=== PATIENT | female | born 1985 | race Caucasian/White ===

== ENCOUNTER 2016-10-19 18:18 | Emergency (ER) | payer OTHER ==
[~2016-10-19] VITALS: Ht 170.2 cm; Wt 59.0 kg
[2016-10-19 18:29] VITALS: BP 129/69
[2016-10-19] MEDS ORDERED: TRAM-48 PO (18:40)
[2016-10-19] MEDS ORDERED: AMOX875T PO (18:40)
--- NOTE | 2016-10-19 18:41 | PHYS DOC ---
Past Medical History Past Medical History: No Pertinent History Past Surgical History: Other Additional Past Surgical Histo: R FINGER SX Alcohol Use: Occasionally Drug Use: None Adult General Chief Complaint Chief Complaint: TOOTH ACHE OR PAIN HPI HPI Patient is a 30 year old female who presents complaining of moderate left upper gum wisdom tooth pain that began a week ago. Patient denies any fever or trismus. She states she has an appointment with her dentist in 3 weeks. Review of Systems Review of Systems Constitutional: Denies fever or chills [] HENT: Left upper gum wisdom tooth pain Musculoskeletal: Denies back pain or joint pain [] Integument: Denies rash or skin lesions [] Neurologic: Denies headache, focal weakness or sensory changes [] Endocrine: Denies polyuria or polydipsia [] Physical Exam Physical Exam Constitutional: Well developed, well nourished, no acute distress, non-toxic appearance. [] HENT: Normocephalic, atraumatic, bilateral external ears normal, oropharynx moist, no oral exudates, nose normal. [] Scattered dental caries throughout her teeth. Left upper gum wisdom tooth appears decayed. No gum redness or swelling. Skin: Warm, dry, no erythema, no rash. [] Back: No tenderness, no CVA tenderness. [] Extremities: No tenderness, no cyanosis, no clubbing, ROM intact, no edema. [] Neurologic: Alert and oriented X 3, normal motor function, normal sensory function, no focal deficits noted. [] Psychologic: Affect normal, judgement normal, mood normal. [] Current Patient Data Vital Signs Vital Signs Date Time Temp Pulse Resp B/P (MAP) Pulse Ox O2 Delivery O2 Flow Rate FiO2 10/19/16 18:29 98.1 74 16 100 Room Air 98.1 EKG EKG [] Radiology/Procedures Radiology/Procedures [] Course & Med Decision Making Course & Med Decision Making Pertinent Labs and Imaging studies reviewed. (See chart for details) Patient has infected dental caries. Discharged with Ultram and amoxicillin. Follow-up with her dentist, she has an appointment in 3 weeks. Dragon Disclaimer Dragon Disclaimer This electronic medical record was generated, in whole or in part, using a voice recognition dictation system. Departure Departure Impression: Primary Impression: Dentalgia Additional Impression: Infected dental caries Disposition: HOME, SELF-CARE Condition: STABLE Referrals: NO PCP (PCP) Follow-up with your dentist in 1-2 weeks Patient Instructions: Dental Caries Additional Instructions: You were seen for infected dental caries. Please complete your antibiotics. Follow-up with your dentist as soon as you can Scripts Tramadol Hcl (ULTRAM) 50 Mg Tablet 1 TAB PO Q6HRS, #30 TAB Prov: CATA ALEJANDRO APRN 10/19/16 Amoxicillin (AMOXICILLIN) 875 Mg Tablet 1 TAB PO BID, #20 TAB Prov: CATA ALEJANDRO APRN 10/19/16 Problem Qualifiers CATA ALEJANDRO APRN Oct 19, 2016 18:41
== END 2016-10-19 18:50 | disposition home or self-care (01) ==
LOC: ER 18:18
DX: K02.9 Dental caries, unspecified (principal); K04.7 Periapical abscess without sinus
CPT/HCPCS: 99283

== ENCOUNTER 2016-11-26 09:57 | Emergency (ER) | payer OTHER ==
[~2016-11-26] VITALS: Ht 170.2 cm; Wt 59.0 kg
[~2016-11-26 09:57] MED LIST: AMOX875T PO; TRAM-48 PO
[2016-11-26 10:05] VITALS: BP 105/72
[2016-11-26] MEDS ORDERED: AMOX1TAB61 PO (10:58)
--- NOTE | 2016-11-26 10:58 | PHYS DOC ---
Past Medical History Past Medical History: No Pertinent History Past Surgical History: Other Additional Past Surgical Histo: R FINGER SX Alcohol Use: Occasionally Drug Use: None Adult General Chief Complaint Chief Complaint: DENTAL PROBLEM HPI HPI Patient is a 30 year old female presents to the emergency department stating that she has had dental pain for the last 2 months. Patient states that she was seen here on 824 she was provided with antibiotics and Ultram. Patient was suppose to followup with a dentist in which she had an appointment however she did not make the appointment. She states she has had increase pain and tenderness to the left upper back tooth. Patient also states she has bilateral ear popping, frontal headache and bilateral anterior cervical adenopathy. Patient denies fever, chills, nausea or vomiting. Patient has been taking ibuprofen for pain. Review of Systems Review of Systems Constitutional: Denies fever or chills [] Eyes: Denies change in visual acuity, redness, or eye pain [] HENT: Denies nasal congestion or sore throat. C/o dental pain, bilateral ear popping and frontal headache Respiratory: Denies cough or shortness of breath [] Cardiovascular: No additional information not addressed in HPI [] GI: Denies abdominal pain, nausea, vomiting, bloody stools or diarrhea [] : Denies dysuria or hematuria [] Musculoskeletal: Denies back pain or joint pain [] Integument: Denies rash or skin lesions [] Neurologic: Denies headache, focal weakness or sensory changes [] Endocrine: Denies polyuria or polydipsia [] Allergies Allergies Allergies Coded Allergies Type Severity Reaction Last Updated Verified No Known Drug Allergies 10/19/16 No Physical Exam Physical Exam Constitutional: Well developed, well nourished, no acute distress, non-toxic appearance. [] HENT: Normocephalic, atraumatic, bilateral external ears normal, oropharynx moist, no oral exudates, nose normal. Bilateral tympanic membranes appear to be normal with bulging noted. Patient with swelling and tenderness noted around the back upper left tooth. No drainage or discharge noted. Eyes: PERRLA, EOMI, conjunctiva normal, no discharge. [] Neck: Normal range of motion, no tenderness, supple, no stridor. [] Cardiovascular:Heart rate regular rhythm, no murmur [] Lungs & Thorax: Bilateral breath sounds clear to auscultation [] Skin: Warm, dry, no erythema, no rash. [] Extremities: No tenderness, no cyanosis, no clubbing, ROM intact, no edema. [] Neurologic: Alert and oriented X 3, normal motor function, normal sensory function, no focal deficits noted. [] Psychologic: Affect normal, judgement normal, mood normal. [] Current Patient Data Vital Signs Vital Signs Date Time Temp Pulse Resp B/P (MAP) Pulse Ox O2 Delivery O2 Flow Rate FiO2 11/26/16 10:05 97.6 98 18 98 Room Air 97.6 EKG EKG [] Radiology/Procedures Radiology/Procedures [] Course & Med Decision Making Course & Med Decision Making Pertinent Labs and Imaging studies reviewed. (See chart for details) Patient will be discharged home with augmentin. Recommendations for sudafed and mucinex DM patient was also recommended to followup with dentist within the next week. Signs and symptoms to return to the emergency department has been provided. All questions and concerns have been answered. Patient will be discharged home in stable condition. Patient was offered ultram in which she states she does not need pain medication. She was concerned about infection after she had googled the signs and symptoms. [] Dragon Disclaimer Dragon Disclaimer This electronic medical record was generated, in whole or in part, using a voice recognition dictation system. Departure Departure Impression: Primary Impression: Infected dental caries Additional Impression: Sinusitis Disposition: 01 HOME, SELF-CARE Condition: STABLE Referrals: NO PCP (PCP) Patient Instructions: Dental Abscess, Sinusitis, [id number] Additional Instructions: Activity as tolerated Tylenol or Ibuprofen for pain and discomfort Antibiotics as prescribed you may use sudafed and mucinex DM over the counter as directed by manufacture Warm salt water mouth rinses 5 times a day Followup with dentist within the week. Return to emergency department as needed for signs and symptoms that become worse. Scripts Amoxicillin/Potassium Clav (AUGMENTIN 875-125 TABLET) 1 Each Tablet 1 TAB PO BID, #20 TAB Prov: DEV KEARNS APRN 11/26/16 Problem Qualifiers Additional Impression: Sinusitis Sinusitis location: unspecified location Chronicity: unspecified Qualified Codes: J32.9 - Chronic sinusitis, unspecified DEV KEARNS APRN Nov 26, 2016 10:58
== END 2016-11-26 11:25 | disposition home or self-care (01) ==
LOC: ER 09:57
DX: K02.9 Dental caries, unspecified (principal); B99.9 Unspecified infectious disease; J32.9 Chronic sinusitis, unspecified
CPT/HCPCS: 99283